=== PATIENT | female | born 1995 | race Two or more races ===

== ENCOUNTER 2020-08-15 15:39 | Emergency (ER) | payer MEDICAID ==
[~2020-08-15] VITALS: Ht 157.5 cm; Wt 69.0 kg
[2020-08-15] MEDS ORDERED: ACETAMINOPHEN 325MG TABLET PO STA (16:29)
[2020-08-15] MEDS ORDERED: SODIUM CHLORIDE 0.9% 1,000 ML IV ONE (16:30)
[2020-08-15 16:55] LABS: CLARITY URINE CLEAR (CLEAR); COLOR URINE YELLOW (YELLOW); KETONES URINE NEGATIVE (NEGATIVE); LEUKOCYTE ESTERASE URINE 3+ (NEGATIVE); NITRITE URINE NEGATIVE (NEGATIVE); OCCULT BLOOD URINE NEGATIVE (NEGATIVE); PROTEIN URINE NEGATIVE (NEGATIVE); SPECIFIC GRAVITY URINE 1.007 (1.005-1.030); UROBILINOGEN URINE 0.2 E.U./dL (0.2-1.0)
[2020-08-15 17:24] LABS: BASOPHILS % 0.5 % (0.0-2.0); EOSINOPHILS % 1.2 % (0.0-5.0); HEMATOCRIT. 41.5 % (36.0-48.0); LYMPHOCYTES % 29.1 % (20.0-50.0); MEAN CORPUSCULAR HEMOGLOBIN 28.8 pg (28.0-32.0); MEAN CORPUSCULAR VOLUME 85.5 fL (81.0-99.0); MEAN PLATELET VOLUME 8.4 fl (7.4-10.4); MONOCYTES % 5.2 % (2.0-8.0); PLATELET 337 x1000/uL (130-400); RED BLOOD CELL COUNT 4.86 mill/uL (4.2-5.4); RED CELL DISTRIBUTION WIDTH 12.8 % (11.6-14.6)
[2020-08-15 17:30] LABS: CHLORIDE 107 mEq/L (98-107)
[2020-08-15 17:33] LABS: PROTHROMBIN TIME 10.5 sec (9.6-11.0)
[2020-08-15 18:00] VITALS: BP 112/80
== END 2020-08-15 18:28 | disposition home or self-care (01) ==
LOC: ER 15:39
DX: N39.0 Urinary tract infection, site not specified (principal)
CPT/HCPCS: 36415; 80053; 81003; 81025; 83690; 85025; 85610; 87086; 99283; J7030

== ENCOUNTER 2021-06-29 17:46 | Emergency (ER) | payer MEDICAID ==
[~2021-06-29] VITALS: Ht 160 cm; Wt 73.0 kg
[2021-06-30] MEDS ORDERED: IBUPROFEN 600MG TABLET PO ONE
[2021-06-30 01:03] LABS: CLARITY URINE CLOUDY (CLEAR); COLOR URINE YELLOW (YELLOW); KETONES URINE TRACE (NEGATIVE); LEUKOCYTE ESTERASE URINE 3+ (NEGATIVE); NITRITE URINE NEGATIVE (NEGATIVE); OCCULT BLOOD URINE NEGATIVE (NEGATIVE); PH URINE 5.5 (4.5-8.0); PROTEIN URINE TRACE (NEGATIVE); SPECIFIC GRAVITY URINE 1.024 (1.005-1.030)
[2021-06-30] MEDS ORDERED: CEPH500T MT (01:06)
[2021-06-30] MEDS ORDERED: CEPHALEXIN 250MG CAPSULE PO NR (01:15)
[2021-06-30 01:57] VITALS: BP 115/70
== END 2021-06-30 01:59 | disposition home or self-care (01) ==
LOC: ER 17:46
DX: N39.0 Urinary tract infection, site not specified (principal); Z20.822 Contact with and (suspected) exposure to COVID-19
CPT/HCPCS: 81003; 87086; 99283; C9803; U0003; U0005

== ENCOUNTER 2022-03-19 15:53 | Emergency (ER) | payer MEDICAID, OTHER ==
[~2022-03-19] VITALS: Ht 160 cm; Wt 75.0 kg
[~2022-03-19 15:53] MED LIST: CEPH500T MT
[2022-03-19 17:46] LABS: BASOPHILS % 0.4 % (0.0-2.0); EOSINOPHILS % 0.8 % (0.0-5.0); HEMOGLOBIN. 13.6 g/dL (12.0-16.0); LYMPHOCYTES % 31.4 % (20.0-50.0); MEAN CORPUSCULAR HEMOGLOBIN 28.9 pg (28.0-32.0); MEAN CORPUSCULAR VOLUME 86.9 fL (81.0-99.0); MONOCYTES % 5.1 % (2.0-8.0); NEUTROPHILS % 62.3 % (40.0-76.0); PLATELET 347 x1000/uL (130-400); RED BLOOD CELL COUNT 4.72 mill/uL (4.2-5.4); RED CELL DISTRIBUTION WIDTH 12.5 % (11.6-14.6)
[2022-03-19 18:08] LABS: CHLORIDE 111 mEq/L (98-107)
[2022-03-19 18:17] LABS: B-HCG QUANTITATIVE < 1 mIU/mL (<3)
[2022-03-19 18:30] LABS: CLARITY URINE CLOUDY (CLEAR); COLOR URINE ORANGE (YELLOW); KETONES URINE NEGATIVE (NEGATIVE); LEUKOCYTE ESTERASE URINE 2+ (NEGATIVE); NITRITE URINE NEGATIVE (NEGATIVE); OCCULT BLOOD URINE 3+ (NEGATIVE); PROTEIN URINE 2+ (NEGATIVE); SPECIFIC GRAVITY URINE 1.025 (1.005-1.030); UROBILINOGEN URINE 0.2 E.U./dL (0.2-1.0)
[2022-03-19] MEDS ORDERED: KETOROLAC 15MG/ML VIAL IV NR (22:45)
[2022-03-19 23:18] VITALS: BP 134/69
[2022-03-19] MEDS ORDERED: NITR100C MT (23:44)
== END 2022-03-20 00:16 | disposition home or self-care (01) ==
LOC: ER 15:53
DX: N93.9 Abnormal uterine and vaginal bleeding, unspecified (principal); N39.0 Urinary tract infection, site not specified
CPT/HCPCS: 36415; 76830; 76856; 80053; 81003; 81025; 84702; 85025; 96374; 99284; J1885; Z7610

== ENCOUNTER 2024-12-10 17:25 | Emergency (ER) | payer MEDICAID ==
[~2024-12-10] VITALS: Ht 160 cm; Wt 74.8 kg
[~2024-12-10 17:25] MED LIST changes: +NITR100C MT
[2024-12-10 17:28] VITALS: O2SAT 100
[2024-12-10] MEDS: ACETAMINOPHEN 325MG TABLET PO ONE (20:11)
[2024-12-10] MEDS: TETANUS, DIPHTHERIA, PERTUSSIS VAC/PF 0.5ML (>10YR OLD) IM ONE (20:12)
[2024-12-10] MEDS: LIDOCAINE HCL 1% 20ML VIAL INFIL ONE (20:15)
[2024-12-10 20:35] VITALS: BP 129/75; PULSE 73; RESP 18; TEMP 36.7; O2SAT 99
== END 2024-12-10 20:38 | disposition home or self-care (01) ==
LOC: ER 17:25
DX: S61.210A Laceration without foreign body of right index finger without damage to nail, initial encounter (principal); W45.8XXA Other foreign body or object entering through skin, initial encounter; Y93.G1 Activity, food preparation and clean up; Y92.89 Other specified places as the place of occurrence of the external cause; Y99.8 Other external cause status
CPT/HCPCS: 73130; 90715; 12001; 90471; 99283; J3490; Z7610